=== PATIENT | male | born 1970 | race Caucasian/White ===

== ENCOUNTER 2019-12-05 22:33 | Emergency (ER) | payer SELFPAY ==
[~2019-12-05] VITALS: Ht 175.3 cm; Wt 79.4 kg
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
--- NOTE | 2019-12-05 22:48 | NUR ---
DR PAIZ AT THE BED SIDE FOR ASSESSMENT
[2019-12-05] MEDS ORDERED: CYCLOBENZAPRINE 10 MG TABLET PO ONE (23:00)
[2019-12-05] MEDS ORDERED: BACI/NEOM/POLY B OINT PKT 1 UDPKT PACKET TP ONE (23:00)
[2019-12-05] MEDS ORDERED: HYDROCODONE/APAP 10/325MG 1 EA TABLET PO ONE (23:00)
[2019-12-05] MEDS ORDERED: ONDANSETRON 4 MG TAB.RAPDIS SL ONE (23:00)
[2019-12-05] MEDS ORDERED: CYCLOBENZAPRINE 10 MG TABLET ONE (23:01)
--- NOTE | 2019-12-05 23:04 | NUR ---
X RAY AT BED SIDE
--- NOTE | 2019-12-05 23:09 | NUR ---
PT REFUSED THE WAVERLY AT THIS TIME AND WILLING TO HOLD ON TO IT FOR NOW.
--- NOTE | 2019-12-05 23:09 | NUR ---
[employer] AT BED SIDE FOR WOUND CARE
--- NOTE | 2019-12-05 23:20 | NUR ---
[employer] AT BED SIDE
--- NOTE | 2019-12-05 23:25 | NUR ---
DR PAIZ AT [facility] PAIZ
--- NOTE | 2019-12-05 23:29 | NUR ---
[facility] AT BED SIDE TO APPLY ORTHO SPLINT
--- NOTE | 2019-12-05 23:45 | NUR ---
PT WAS PROVIDED W/ LONG ARM SPLINT AND SHOULDER SLING
--- NOTE | 2019-12-05 23:50 | NUR ---
PT RECEIVED GOOD SKIN CARE ON BLE AND BUE ABRASIONS. RFA SPLINT PROVIDED . MEDICALLY STABLE FOR D/C. Patient discharged to home in stable condition. Rx and Written and verbal after care instructions given. Patient verbalizes understanding of instruction. at the bed side , will provide ride to the pt,
[2019-12-06 00:13] VITALS: BP 148/85
== END 2019-12-06 | disposition home or self-care (01) ==
LOC: ER 22:33
DX: S52.221A Displaced transverse fracture of shaft of right ulna, initial encounter for closed fracture (principal); S16.1XXA Strain of muscle, fascia and tendon at neck level, initial encounter; S29.012A Strain of muscle and tendon of back wall of thorax, initial encounter; S80.812A Abrasion, left lower leg, initial encounter; S80.811A Abrasion, right lower leg, initial encounter; V49.49XA Driver injured in collision with other motor vehicles in traffic accident, initial encounter; Y93.89 Activity, other specified; Y92.413 State road as the place of occurrence of the external cause; Y99.8 Other external cause status
CPT/HCPCS: 73090-TC; 73110